=== PATIENT | female | born 1990 | race Caucasian/White ===

== ENCOUNTER 2021-07-18 12:42 | Emergency (ER) | payer OTHER ==
[~2021-07-18] VITALS: Ht 172.7 cm; Wt 71.9 kg
[2021-07-18 12:46] VITALS: BP 120/72
--- NOTE | 2021-07-18 13:13 | PHYS DOC ---
Past History Past Medical History: Sinusitis (MARIANNA CHAMBERS APRN) Past Surgical History: , Tubal ligation (MARIANNA CHAMBERS APRN) Smoking: Non-smoker Alcohol Use: None Drug Use: None (MARIANNA CHAMBERS APRN) General Adult EDM: Chief Complaint: CONGESTION HPI: HPI: Patient is a 31-year-old female that presents today for a 4 to 5-day complaint of facial pain, sinus congestion and ear pain. Patient states she has had chills but no documented fever. Patient denies exposure to COVID-19 and has had a negative Covid test within the last 7 days. Patient states she has been vaccinated. Patient states that she has been using [id number] decongestant medications and cough medications and has also been using nasal spray starting yesterday. (MARIANNA CHAMBERS APRN) Review of Systems: Review of Systems: Constitutional: chills + and denies fever Eyes: Denies change in visual acuity HENT: nasal congestion or sore throat and right ear pain Respiratory: cough or denies shortness of breath Cardiovascular: Denies chest pain or edema GI: Denies abdominal pain, nausea, vomiting, bloody stools or diarrhea : Denies dysuria Musculoskeletal: Denies back pain or joint pain Integument: Denies rash Neurologic: Denies headache, focal weakness or sensory changes Endocrine: Denies polyuria or polydipsia Lymphatic: Denies swollen glands Psychiatric: Denies depression or anxiety (MARIANNA CHAMBERS APRN) Allergies: Allergies: Allergies Coded Allergies Type Severity Reaction Last Updated Verified clindamycin Allergy Unknown 07/18/21 Yes morphine Allergy Unknown 07/18/21 Yes (MARIANNA CHAMBERS [employer]) Physical Exam: PE: Constitutional: Well developed, well nourished, no acute distress, non-toxic appearance. [] HENT: bilateral external ears normal, right ear TM bulging and left ear TM dual. oropharynx moist with redness noted, nares noted to be red, facial tenderness and swelling noted under eyes Eyes: PERRLA, EOMI, conjunctiva normal, no discharge. [] Neck: Normal range of motion, no tenderness, supple, no stridor. [] Cardiovascular:Heart rate regular rhythm, no murmur [] Lungs & Thorax: Bilateral breath sounds clear to auscultation [] Abdomen: Bowel sounds normal, soft, no tenderness, no masses, no pulsatile masses. [] Skin: Warm, dry, no erythema, no rash. [] Back: No tenderness, no CVA tenderness. [] Extremities: No tenderness, no cyanosis, no clubbing, ROM intact, no edema. [] Neurologic: Alert and oriented X 3, normal motor function, normal sensory f unction, no focal deficits noted. [] Psychologic: Affect normal, judgement normal, mood normal. [] (MARIANNA CHAMBERS APRN) Current Patient Data: Vital Signs: Vital Signs Date Time Temp Pulse Resp B/P (MAP) Pulse Ox O2 Delivery O2 Flow Rate FiO2 07/18/21 12:46 98.7 95 18 120/72 (88) 100 Room Air (MARIANNA CHAMBERS APRN) EKG: EKG: [] (MARIANNA CHAMBERS APRN) Radiology/Procedures: Radiology/Procedures: [] (MARIANNA CHAMBERS APRN) Heart Score: C/O Chest Pain: N/A Risk Factors: Risk Factors: DM, Current or recent (<one month) smoker, HTN, HLP, family history of CAD, obesity. Risk Scores: Score 0 - 3: 2.5% MACE over next 6 weeks - Discharge Home Score 4 - 6: 20.3% MACE over next 6 weeks - Admit for Clinical Observation Score 7 - 10: 72.7% MACE over next 6 weeks - Early Invasive Strategies (MARIANNA CHAMBERS APRN) Course & Med Decision Making: Course & Med Decision Making Pertinent Labs and Imaging studies reviewed. (See chart for details) H&P completed patient also complains of seasonal allergies as well patient given instructions on taking Zyrtec OTC and use of Flonase [id number], take Tylenol and ibuprofen as needed for pain, take antibiotic until completed. Patient instructed to stay well-hydrated patient, instructed to follow-up with primary care physician as needed in 5 to 7 days if symptoms no better patient verbalized understanding] (MARIANNA CHAMBERS APRN) [place] Disclaimer: Dragon Disclaimer: This electronic medical record was generated, in whole or in part, using a voice recognition dictation system. (MARIANNA CHAMBERS APRN) Attending Co-Sign The patient was seen and interviewed as well as examined at the bedside. The chart was reviewed. The case was discussed. Agree with the plan of care. (YVETTE NOLAN DO) Departure Departure: Impression: Primary Impression: Acute bacterial sinusitis Additional Impression: Seasonal allergies Disposition: HOME / SELF CARE / HOMELESS Condition: STABLE Referrals: PCP,NO (PCP) FRANTZ CASTILLO MD Patient Instructions: Allergies, Generic, Sinus Headache, [id number] Additional Instructions: Ok to take over the counter Zyrtec daily and Flonase one spray per nare twice daily for seasonal allergies. OK to use Normal Saline nasel spary as label directed. Take antibiotics as directed. Follow up with PCP or referred MD as needed in 5-7 days. MARIANNA CHAMBERS APRN Jul 18, 2021 13:13 YVETTE NOLAN DO Jul 19, 2021 07:02
== END 2021-07-18 13:37 | disposition home or self-care (01) ==
LOC: ER 12:42
DX: J01.80 Other acute sinusitis (principal); B96.89 Other specified bacterial agents as the cause of diseases classified elsewhere; J30.2 Other seasonal allergic rhinitis; Z88.1 Allergy status to other antibiotic agents; Z88.5 Allergy status to narcotic agent
CPT/HCPCS: 99282

== ENCOUNTER 2021-09-07 15:39 | Emergency (ER) | payer OTHER ==
[~2021-09-07] VITALS: Ht 172.7 cm; Wt 71.9 kg
[2021-09-07] MEDS ORDERED: NEOMY/BACITR/POLYMYXIN OINT PACKET. TP ONE (16:30)
[2021-09-07] MEDS ORDERED: DIPH,PERTUSS(ACELL),TET VAC/PF 0.5 ML SYRINGE. VAX IM ONE (16:30)
--- NOTE | 2021-09-07 16:44 | PHYS DOC ---
Past History Past Medical History: Anxiety, Depression, Sinusitis Additional Past Medical Histor: Insomnia, PTSD Past Surgical History: (3x ), Tubal ligation Additional Past Surgical Histo: R. Elbow debridement d/t soft tissue infection Smoking: Non-smoker, Cigarettes, Greater than 1 pack/day Additional Smoking Information: 14 year hx 1/2 pack per day Alcohol Use: Rarely Drug Use: None Social History Works at [employer] Adult EDM: Chief Complaint: FINGER INJURY HPI: HPI: 31 y/o female presents from work with an injury to her left thumb she received while cutting cheese with a mandolin. The patient reports mild bleeding well controlled with direct pressure at work. No current bleeding in the ED. Patient reports pain described as a throbbing sensation 03/25. She is unsure of her last tetanus shot, believes w/n the last 10 years but uncertain if w/'n the last 5 years. Review of Systems: Review of Systems: Constitutional: Denies fever or chills Eyes: Denies change in visual acuity HENT: Denies nasal congestion or sore throat Respiratory: Denies cough or shortness of breath Cardiovascular: Denies chest pain or edema GI: Denies abdominal pain, nausea, vomiting, bloody stools or diarrhea : Denies dysuria Musculoskeletal: Denies back pain; reports left thumb pain Integument: Denies rash Neurologic: Denies headache, focal weakness or sensory changes Endocrine: Denies polyuria or polydipsia Lymphatic: Denies swollen glands Family History: Family History: patient reports no remarkable family hx Current Medications: Current Meds: Buspiron 5 mg Mirtazipine 45 mg Denies OTC medications / Supplements Allergies: Allergies: Allergies Coded Allergies Type Severity Reaction Last Updated Verified clindamycin Allergy Unknown reported rash 07/18/21 Yes morphine Allergy Unknown reported "throat closing" 07/18/21 Yes Physical Exam: PE: Constitutional: Well developed, well nourished, no acute distress, non-toxic appearance. HENT: Normocephalic, atraumatic, Eyes: conjunctiva normal, no discharge. Neck: Normal range of motion, supple, no stridor. Cardiovascular:Heart rate regular rhythm, no murmur. +2 peripheral pulses bilaterally, Lungs & Thorax: Bilateral breath sounds clear to auscultation, nomral chest wall excursion Abdomen: Bowel sounds normal, soft, no tenderness Skin: Warm, dry, no erythema, no rash. Back: No tenderness, no CVA tenderness. Extremities: No tenderness, no cyanosis, no clubbing, no edema; L. thumb w/ mild numbness, partial avulsion of L. thumb soft-tissue not involving the nail bed, appropriate cap refil of L. thumb, Neurologic: Alert and oriented X 3, normal motor function, no focal deficits noted. Psychologic: Affect normal, judgement normal, mood normal. Current Patient Data: Vital Signs: Vital Signs Date Time Temp Pulse Resp B/P (MAP) Pulse Ox O2 Delivery O2 Flow Rate FiO2 09/07/21 16:05 98.2 70 16 120/72 (88) 98 Room Air EKG: EKG: [] Radiology/Procedures: Radiology/Procedures: [] Heart Score: C/O Chest Pain: N/A Course & Med Decision Making: Course & Med Decision Making Pertinent Labs and Imaging studies reviewed. (See chart for details) 31 y/o from work w/ unintentional partial avulsion of L. thumb soft tissue not involving the nailbed while using a mandolin at work. No active bleeding in the ER. Patient is unsure of her last tetanus shot. Plan to irrigate wound, perform a digital block, and suture wound flap down, as well as administer dose of tetanus shot. Howard Disclaimer: Howard Disclaimer: This electronic medical record was generated, in whole or in part, using a voice recognition dictation system. Laceration/Wound Repair Laceration/Wound Repair : Wound Location: upper extremity (left thumb) Wound's Depth, Shape: superficial, flap Wound Length (cm): 2 Wound Explored: no foreign body removed Irrigated w/ Saline (ccs): 200 Anesthesia: Lidocaine w/ Epi (2%) Volume Anesthetic (ccs): 2 Wound Debrided: moderate Wound Repaired With: sutures Suture Size/Type: 5:0, nylon Number of Sutures: 8 Sterile Dressing Applied?: Yes Progress Verbal consent obtained. Time out performed. Hand hygiene utilized. Wound cleaned with ChloraPrep. Anesthesia obtained via 4- nerve digital block by dorsal approach utilizing a 25-gauge hypodermic needle with (2) mL's of lidocaine 2% with epinephrine. Copious irrigation performed. Wound well approximated with 5-0 nylon simple interrupted sutures x8 Patient tolerated procedure well and without difficulty. Empiric antibiotic ointment applied prior to sterile dressing. Departure Departure: Impression: Primary Impression: Finger laceration Qualified Codes: S61.012A - Laceration without foreign body of left thumb without damage to nail, initial encounter Disposition: HOME / SELF CARE / HOMELESS Condition: STABLE Referrals: PCP,NO (PCP) Patient Instructions: Laceration Care, Adult, [id number] Additional Instructions: Do not soak your wound. You may shower. Clean wound daily with soap and water. Change dressing 2 times daily. Use over the counter antibiotic ointment with each dressing change. Sutures need to be removed in 7-10 days. Present to your family doctor or local urgent care for removal. You may also present to the ED but it will be an additional visit/charge. After suture removal you may use Vitamin E ointment to soften the wound and prevent scarring. Use [id number] ibuprofen and or Tylenol for pain or discomfort. DONALD LEON DO Sep 07, 2021 16:44
[2021-09-07] MEDS ORDERED: LIDOCAINE 2%/EPI 1:100,000 20 ML VIAL. IJ ONE (17:00)
[2021-09-07 18:44] VITALS: BP 124/70
== END 2021-09-07 18:46 | disposition home or self-care (01) ==
LOC: ER 15:39
DX: S61.012A Laceration without foreign body of left thumb without damage to nail, initial encounter (principal); F41.9 Anxiety disorder, unspecified; F32.9 Major depressive disorder, single episode, unspecified; Z87.891 Personal history of nicotine dependence; Z88.1 Allergy status to other antibiotic agents; Z88.5 Allergy status to narcotic agent; W26.8XXA Contact with other sharp object(s), not elsewhere classified, initial encounter; Y93.89 Activity, other specified; Y92.89 Other specified places as the place of occurrence of the external cause; Y99.8 Other external cause status
CPT/HCPCS: 12001; 90471; 90715; 99283